=== PATIENT | female | born 1980 | race Caucasian/White ===

== ENCOUNTER 2025-01-22 14:43 | Day surgery (SDC) | payer OTHER ==
[2025-01-22] MEDS ORDERED: LIDOCAINE HCL 1% AMPUL 5 ML IJ ONE (14:44)
[2025-01-22] MEDS ORDERED: BUPIVACAINE 0.5% VIAL IJ ONE (14:44)
[2025-01-22] MEDS ORDERED: Depo-Medrol 40 MG/ML IM ONE (14:44)
[2025-01-22 15:26] LABS: HCG URINE TEST NEGATIVE (NEGATIVE)
--- NOTE | 2025-01-22 20:28 | XRAY ---
Indication: Left hip and greater trochanter bursa injection. Intraoperative fluoroscopy provided for 26 seconds. 3 digital spot image submitted for interpretation demonstrates needle tip projecting lateral to left femur neck and greater trochanter. Small amount of contrast injected for both needle tip placement. Correlate with intraoperative findings/report.
--- NOTE | 2025-01-22 20:32 | XRAY ---
26 seconds of fluoroscopy were used in surgery for a left intra-articular hip injection and a left greater trochanteric bursa injection.
== END 2025-01-22 17:40 | disposition home or self-care (01) ==
LOC: SDC-PAIN 14:43
PROVIDERS: ATTEND Psychiatry & Neurology Pain Medicine
DX: M16.12 Unilateral primary osteoarthritis, left hip (principal)
CPT/HCPCS: 20610; 73502; 77002; 81025; Q9966

== ENCOUNTER 2025-09-03 13:43 | Day surgery (SDC) | payer OTHER ==
[2025-09-03] MEDS ORDERED: propofoL IV ONE (16:34)
== END 2025-09-03 15:20 | disposition home or self-care (01) ==
LOC: SDC-PAIN 13:43
PROVIDERS: ATTEND Psychiatry & Neurology Pain Medicine
DX: Z53.8 Procedure and treatment not carried out for other reasons (principal)